=== PATIENT | female | born 1960 | race Caucasian/White ===

== ENCOUNTER → 2017-05-14 | Outpatient (CLI) | payer OTHER ==
--- NOTE | 2017-05-14 14:06 | DIAGNOSTIC IMAGING REPORT ---
CHEST 2 VIEWS ROUTINE CLINICAL HISTORY: Shortness of breath. COMPARISON STUDY: Chest radiograph December 11, 2013. FINDINGS: Lung volumes are normal. No pneumothorax or pleural effusion is present. Calcific right lung density is unchanged since prior exam. This is benign. There is no consolidation to suggest pneumonia. There is no evidence of pulmonary edema. Apparent postsurgical findings within the right upper lung are noted. There may be minimal lingular opacity. IMPRESSION: 1. Minimal lingular opacity. Atelectasis is favored over an infectious process. 2. No definite acute cardiopulmonary findings. Electronically signed by: Herber Betancur M.D. 05/14/2017 2:04 PM Dictated Date/Time: 05/14/2017 2:01 PM
== END | disposition home or self-care (01) ==
LOC: C.RAD1850 13:21
PROVIDERS: ATTEND Physician Assistant
DX: R06.02 Shortness of breath (principal)

== ENCOUNTER → 2017-12-10 | Outpatient (CLI) | payer OTHER ==
--- NOTE | 2017-12-10 15:45 | DIAGNOSTIC IMAGING REPORT ---
TWO VIEW CHEST CLINICAL HISTORY: Cough. FINDINGS: PA and lateral chest radiographs are compared to study dated 05/14/2017. The cardiomediastinal silhouette is unremarkable. There is no airspace consolidation or pleural effusion. Calcified granulomas are again seen in the right lower lung. There is no pneumothorax. The bony thorax appears intact. IMPRESSION: No active disease in the chest. Electronically signed by: Harman Van M.D. 12/10/2017 3:44 PM Dictated Date/Time: 12/10/2017 3:44 PM
[2017-12-10 16:02] LABS: BLOOD UREA NITROGEN 6 mg/dl (7-18); CALCIUM 9.1 mg/dl (8.5-10.1); CARBON DIOXIDE 24 mmol/L (21-32); CREATININE 0.74 mg/dl (0.60-1.20); GLUCOSE 163 mg/dl (70-99); POTASSIUM 3.1 mmol/L (3.5-5.1); SODIUM 136 mmol/L (136-145)
[2017-12-11 07:17] LABS: HEMOGLOBIN A1C 6.9 % (4.5-5.6)
== END | disposition home or self-care (01) ==
LOC: C.RAD1850 14:56
PROVIDERS: ATTEND Physician Assistant
DX: G47.419 Narcolepsy without cataplexy (principal); E11.9 Type 2 diabetes mellitus without complications